=== PATIENT | female | born 2000 | race Caucasian/White ===

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

== ENCOUNTER 2018-06-08 23:31 | Emergency (ER) | payer BC, OTHER ==
[~2018-06-08] VITALS: Ht 175.3 cm; Wt 59.0 kg
[2018-06-08 23:37] VITALS: BP 113/97
[2018-06-09] MEDS ORDERED: BACITRACIN ZINC OINT PACKET 1 EA PACKET TP ONE ×2 (00:04)
== END 2018-06-09 00:16 | disposition home or self-care (01) ==
LOC: ER 23:33
DX: T24.211A Burn of second degree of right thigh, initial encounter (principal); J45.909 Unspecified asthma, uncomplicated; F41.9 Anxiety disorder, unspecified; X12.XXXA Contact with other hot fluids, initial encounter; Y93.89 Activity, other specified; Y92.89 Other specified places as the place of occurrence of the external cause; Y99.8 Other external cause status
CPT/HCPCS: 16020; 99284; A4606